=== PATIENT | female | born 1985 | race African-American/Black ===

== ENCOUNTER 2017-10-15 15:13 | Emergency (ER) | payer SELFPAY ==
[~2017-10-15] VITALS: Ht 170.2 cm; Wt 133.8 kg
[2017-10-15 15:27] VITALS: BP 155/105
[2017-10-15] MEDS ORDERED: CEPHALEXIN MONOHYDRATE 500 MG CAPSULE PO ONE ×2 (16:30→16:39)
[2017-10-15] MEDS ORDERED: LIDOCAINE HCL/PF 1% 30 ML VIAL TP ONE (16:30)
== END 2017-10-15 17:03 | disposition home or self-care (01) ==
LOC: ER 15:18
DX: L03.022 Acute lymphangitis of left finger (principal); Z91.011 Allergy to milk products
CPT/HCPCS: A4606; A6402; J3490; Z7610

== ENCOUNTER 2023-01-04 15:06 | Emergency (ER) | payer OTHER ==
--- NOTE | 2023-01-04 15:30 | NUR ---
CALLED TO TRIAGE,NO ANSWER
--- NOTE | 2023-01-04 16:00 | NUR ---
CALLED TO TRIAGE,NO ANSWER
--- NOTE | 2023-01-04 16:07 | NUR ---
CALLED TO TRIAGE,NO ANSWER
== END 2023-01-04 16:07 | disposition left against medical advice (07) ==
LOC: ER 15:20
DX: Z53.21 Procedure and treatment not carried out due to patient leaving prior to being seen by health care provider (principal)